=== PATIENT | male | born 1945 | race Caucasian/White ===

== ENCOUNTER → 2017-12-01 | Outpatient (CLI) | payer OTHER ==
[~2017-12-01] MED LIST: AMITRIPTYLINE H10 M3 PO; ASPIR 8181 MG PO; ASPIRIN325; CARAFATE 1 GM TA1 G1 PO; CIPRO500 MG PO; COLACE100 MG PO; CYMBALTA60 MG PO; IBUPROFEN 600600 M1 PO; LYRICA 50 MG50 MG PO; METAMUCIL PAC1 UDPK1 GT; MIRALAX17 G1 PO; MOBIC15 MG PO; MS CONTIN15 MG PO; MS CONTIN30 MG PO; NEURONTIN 300300 M1 PO; NORCO 5-325 TA1 EACH; OMEPRAZOLE20 M1 PO; OXYCODONE HCL5 M1; PROBIOTIC1 EAC1 PO; PROSCAR 5MG TABL5 M1 PO; PROTONIX 20 MG20 M1 PO; ROXICODONE5 M1 PO; VITAMIN D PO; XARELTO10 M1; XARELTO10 M1 PO; ZANTAC 150MG T150 M1 PO; ZOCOR 20 MG TAB20 M1 PO; ZOFRAN4 MG PO
--- NOTE | 2017-12-21 13:50 | PAINCON ---
[facility] [address] [place] [address] PAIN MANAGEMENT CONSULTATION Name: MIRELA FERGUSON Room: [facility] FEMI WrightGo#: [id number] Admission: 12/01/17 Attend Phys: Gregorio Ford MD Discharge: Date of : 47 Report #: [id number] THIS REPORT FOR: //name// CC: Gregorio Sandoval MD DATE OF SERVICE: 12/01/2017 CHIEF COMPLAINT: Low back pain. HISTORY OF PRESENT ILLNESS: The patient is a 72-year-old gentleman who has been referred to the pain clinic for evaluation. He states that he has an extensive history of chronic pain involving his back and lower legs. This has been going on for quite some time. He has been seen in the past by [facility] in regards to his chronic pain condition. He has undergone a number of procedures, which have included epidural steroid injections. Evaluation for SI joint problems, consideration for spinal cord stimulation. The patient has been treated with opioid medications. He currently is at 30 mg p.o. t.i.d. of morphine. He states that he would like to stop taking his medications. He did go for a while where he is significantly decreased the amount of medications. He was quite surprised at how much pain and discomfort he was experiencing as a result of discontinuation of these medications. The patient states that he has used gabapentin. He has had levels up to 3600 mg day and overall did not feel like that was significantly beneficial and has decreased to a lower at this juncture. He states that he was evaluated by [facility] and told that he has some neuropathy in the lower extremities. The patient states that he continues to be quite active. He moves his lawn does gardening and overall he is a very busy gentleman over time. He has tried a TENS unit, which he had bought [id number] over the last 6 months, he notes that what appears to be an escalation in pain and discomfort in his right leg. He notes his left leg, sometimes "flares up in the evening." Feels like "cluster migraine type pain." He has had cluster headaches in the past. Does note some burning pain down in his feet. The patient recently saw Dr. Geiger. After evaluation of his MRI results he did not see a surgical option in the future. The patient feels that epidural steroid injections and other procedures have not been very fruitful. ALLERGIES: SULFA. CURRENT MEDICATIONS: Aspirin 81 mg, Cymbalta 60 mg, Proscar 5 mg, gabapentin 300 mg t.i.d., had taken up to 3600 per day, ibuprofen 600 mg q. 6 hours p.r.n. pain, probiotic, lactobacillus, Mobic 15 mg daily, morphine sulfate 30 mg t.i.d., omeprazole 20 mg daily, MiraLax 17 grams daily, Zocor 20 mg. PAST MEDICAL HISTORY: Allergic rhinitis, hyperlipidemia, lumbar spinal [facility] [address] [place] [address] PAIN MANAGEMENT CONSULTATION Name: MIRELA FERGUSON [id number] Admission: 12/01/17 Attend Phys: Gregorio Ford MD Discharge: Date of : 47 Report #: [id number] stenosis, lumbar spine spondylosis, lumbar/thoracic radiculitis, neuropathy, prostatic hypertrophy benign, sacroiliitis, spinal stenosis, thoracic radiculitis. PAST SURGICAL HISTORY: Foot surgery, left knee replacement left, right knee replacement. SOCIAL HISTORY: Rare use of alcoholic beverages. Denies use of tobacco in the past. REVIEW OF SYSTEMS: Back pain, leg pain, knee pain. LABORATORY DATA: [facility] report from [facility] progress notes, shows MRI of the lumbar spine reported degenerative disk changes at multiple levels with mild disk bulging. The most significant changes are noted at the L4-L5 level with a component of [id number] foraminal narrowing. Facet arthropathy was noted at several levels. PAIN CLINIC ASSESSMENT: 1. The patient is being treated because of osteoarthritic changes and has had both knees replaced. 2. Height 6 feet 1 inch, weight 219 pounds, BMI is 29. 3. Vital signs: Blood pressure 151/87, heart rate 65, respiratory rate 16, room air saturation 99%, temperature 98.2. 4. Pain intensity 6/10. 5. Fall risk. The patient has not fallen in the last 3 months. 6. Blood thinner. The patient is not on a blood thinning agent. 7. History of hypertension. The patient is not being treated for hypertension. 8. Opioid greater than 6 weeks. The patient has been on opioid therapy for quite some time. He is on 30 mg of MS Contin t.i.d. 8. Risk assessment tool. 9. Functional assessment tool. 10. Recreational drug use. The patient denies use of recreational drugs. 11. Tobacco: The patient denies use of tobacco. 12. Alcohol: The patient denies use of frequent use of alcohol. PHYSICAL EXAMINATION: GENERAL: The patient is a well-developed, well-nourished white male. He appears his stated age. He is alert and oriented x 3. Speech is fluent. HEENT: Normocephalic, atraumatic. Extraocular eye muscles intact. The patient does have some slight redness in the inner canthal area of his left eye. Mucous membranes are moist. Hearing is within normal limits. NECK: Without adenopathy or bruit, good range of motion. HEART: Regular rate. S1, S2. LUNGS: Clear to auscultation without crackles or rales. MUSCULOSKELETAL: Without significant scoliosis, kyphosis [place] [address] PAIN MANAGEMENT CONSULTATION Name: MIRELA FERGUSON Room: [facility]#: [id number] Admission: 12/01/17 Attend Phys: Gregorio Ford MD Discharge: Date of : 47 Report #: [id number] and leaning forward to about 45 degrees cause some increased discomfort in the low back area. Has pain and discomfort in the right as well as a left leg. Complains of a burning feeling down in his legs, some portion of his feet. Muscle strength is judged to be 5/5 for the major muscle groups in the lower extremity. Complaints of some weakness in the upper portion of his legs and thighs, aching, burning sensation. IMPRESSION: 1. Long history of back pain and leg pain. Possibly neurologic component. 2. History of lumbar degenerative disk disease. 3. Lumbar/thoracic radiculitis. 4. Allergic rhinitis. 5. History of cervicalgia: Neoplasms benign, degenerative disk disease, lumbosacral intervertebral. 6. Hypercholesterolemia. 7. Hyperlipidemia. 8. Lumbar spinal stenosis. 9. Lumbar spondylosis. 10. Neuropathy. 11. Prostatic hypertrophy, benign. 12. Sacroiliitis history. 13. Spinal stenosis. RECOMMENDATIONS: We discussed treatment options with the patient. We reviewed his MRI/lab results that were found in his [facility] history. At this juncture, the patient seems to have been provided with a very reasonable treatment course. He is aware that opioid medications were not totally relieve his pain. He feels that the morphine 30 mg 1 p.o. t.i.d. is helpful. We have explained to him that the upper limits of opioid use per the CDC at this juncture is 90 mg. He is at the top level. He has taken gabapentin at a significant level without any significant long-term benefits. We have reminded him not to take ibuprofen and Meloxicam together; dual-use of nonsteroidal anti-inflammatory medication can be problematic, which could affect his kidneys as well as his GI tract. We explained to the patient that use of a dorsal columns/spinal cord stimulator sometimes can be considered. These are only place after all other options have been exhausted. The patient at this juncture does not feel that he would like to undergo that treatment at this point. Again, he would like to continue with his current medical management, realizing the limitations of his current medications. A script for MS Contin 30 mg 1 p.o. t.i.d. has been written. The patient states that he had received a script from Dr. Sandoval for 2 weeks of medication. We would like to thank you for letting us participate in his care. We hope he continues to improve. <ELECTRONICALLY SIGNED> By: Gregorio Ford MD 12/21/17 [id number]. Clayton Ford MD /paras
== END ==
LOC: M.PC 04:34
DX: M47.26 Other spondylosis with radiculopathy, lumbar region (principal); M48.061 Spinal stenosis, lumbar region without neurogenic claudication; E78.5 Hyperlipidemia, unspecified; E78.00 Pure hypercholesterolemia, unspecified; N40.1 Benign prostatic hyperplasia with lower urinary tract symptoms; J30.9 Allergic rhinitis, unspecified